=== PATIENT | male | born 1940 | race Caucasian/White ===

== ENCOUNTER 2017-01-28 16:41 | Inpatient (IN) | payer MEDICARE, MEDICAID ==
[~2017-01-28] VITALS: Ht 180.3 cm; Wt 56.8 kg
[2017-01-28 16:46] VITALS: BP 190/99; PULSE 118; RESP 24; TEMP 97.8; O2SAT 96
[2017-01-28 17:05] VITALS: BP 123/70; PULSE 113; RESP 16; TEMP 98.8; O2SAT 96
[2017-01-28] MEDS ORDERED: SODIUM CHLOR 0.9% 1000 ML INJ 1,000 ML IV SCH (18:38)
--- NOTE | 2017-01-28 18:44 | PD ---
HPI Chief Complaint: Fall Time Seen by Provider: 18:41 Travel History International Travel<30 days: No Contact w/Intl Traveler<30days: No Traveled to known affect area: No History of Present Illness HPI 76-year-old male with a history of hypertension and is brought to the emergency department by EMS for evaluation of fall that occurred 3 days ago. The patient lives in [place] [facility] [place] community alone, he uses a power chair for getting around, he does not ambulate. He states that he was transferring from his wheelchair to the toilet on Thursday evening when he lost his balance and fell to the left side. States that he fell onto his left side on his buttocks however thinks that he hit his right leg on something. States that he was unable to get up after this fall and laid on the ground until the morning. States that he does not think he hit his head or lost consciousness. States that the communication manager came to check on him in the morning and called the fire department who evaluated the patient. At the time the patient states that he did not want come to the hospital and so they put him in his bed on Thursday and he has been in his bed since Thursday. States that he called EMS today because he 's been unable to move out of his bed due to pain in his right upper leg. He has not had anything to eat or drink over the last several days. He denies any fever, chills, nausea, vomiting, chest pain, shortness of breath, abdominal pain , lightheadedness, dizziness, numbness or tingling, weakness. The patient has a deformity in the right leg and right arm that he states has been present since . Denies anticoagulation. PCP Dr. Martinez. No other complaints. [facility] Past Medical History Hypertension: Yes Social History Alcohol Use: No Tobacco Use: No Substance Use: No Allergies-Medications (Allergen,Severity, Reaction): Coded Allergies: Penicillin (Verified Allergy, Unknown, 01/28/17) Reported Meds & Prescriptions Reported Meds & Active Scripts Active Active Prescriptions or Reported Medications Unobtainable Review of Systems Except as stated in HPI: all other systems reviewed are Neg Physical Exam Narrative GENERAL: Well-nourished and well-developed pleasant patient in no acute distress who is nontoxic appearing. SKIN: Warm and dry. HEAD: Normocephalic and atraumatic. EYES: No injection, drainage, or hyphema noted. PERRLA. EOMI. ENT: No nasal drainage noted. Oropharynx is clear. NECK: Supple and the trachea is midline. No obvious deformities, midline tenderness to palpation. CARDIOVASCULAR: Regular rate and rhythm. RESPIRATORY: Breath sounds are equal bilaterally with no accessory muscle use, wheezing, rhonchi, or crackles. GASTROINTESTINAL: Abdomen is soft, non-tender, and nondistended. MUSCULOSKELETAL: Deformity noted to the right upper extremity and right leg, per patient this is chronic. Patient does have tenderness to palpation of right upper thigh, pain in the right thigh is elicited with movement. No cyanosis or ecchymosis is present throughout the upper and lower extremities. DP pulses are 2+ bilaterally. BACK: Nontender without any obvious deformities, bony point tenderness, or crepitus noted throughout the thoracic and lumbar vertebrae. NEUROLOGICAL: Awake, alert, and oriented. Normal speech and gait. Cranial nerves are grossly intact. Data Data Last Documented VS Vital Signs Date Time Temp Pulse Resp B/P Pulse Ox O2 Delivery O2 Flow Rate FiO2 01/28/17 20:17 106 18 125/58 100 Room Air 01/28/17 17:05 98.8 Orders Complete Blood Count With Diff (01/28/17 18:38) Comprehensive Metabolic Panel (01/28/17 18:38) Lactic Acid (01/28/17 18:38) Prothrombin Time / Inr (Pt) (01/28/17 18:38) Act Partial Throm Time (Ptt) (01/28/17 18:38) Urinalysis - C+S If Indicated (01/28/17 18:38) Iv Access Insert/Monitor (01/28/17 18:38) Ecg Monitoring (01/28/17 18:38) Oximetry (01/28/17 18:38) Sodium Chlor 0.9% 1000 Ml Inj (Ns 1000 M (01/28/17 18:38) Sodium Chloride 0.9% Flush (Ns Flush) (01/28/17 18:45) Electrocardiogram (01/28/17 18:38) Creatine Kinase (Cpk) (01/28/17 18:38) Femur (Ap & Lat/2vws) (01/28/17 18:38) Pelvis, Ap Only (Routine) (01/28/17 18:38) Ct Brain W/O Iv Contrast(Rout) (01/28/17 18:44) Urine Culture (01/28/17 17:50) Labs Laboratory Tests Test 01/28/17 17:50 White Blood Count 5.1 TH/MM3 Red Blood Count 2.90 MIL/MM3 Hemoglobin 9.2 GM/DL Hematocrit 27.8 % Mean Corpuscular Volume 96.1 FL Mean Corpuscular Hemoglobin 31.6 PG Mean Corpuscular Hemoglobin 32.9 % Concent Red Cell Distribution Width 16.5 % Platelet Count 56 TH/MM3 Mean Platelet Volume 8.2 FL Neutrophils (%) (Auto) 85.9 % Lymphocytes (%) (Auto) 7.7 % Monocytes (%) (Auto) 6.0 % Eosinophils (%) (Auto) 0.1 % Basophils (%) (Auto) 0.3 % Neutrophils # (Auto) 4.4 TH/MM3 Lymphocytes # (Auto) 0.4 TH/MM3 Monocytes # (Auto) 0.3 TH/MM3 Eosinophils # (Auto) 0.0 TH/MM3 Basophils # (Auto) 0.0 TH/MM3 CBC Comment AUTO DIFF Differential Comment AUTO DIFF CONFIRMED Platelet Estimate LOW Platelet Morphology Comment NORMAL Prothrombin Time 11.6 SEC Prothromb Time International 1.0 RATIO Ratio Activated Partial 22.0 SEC Thromboplast Time Urine Color YELLOW Urine Turbidity HAZY Urine pH 5.5 Urine Specific [place] 1.019 Urine Protein 30 mg/dL Urine Glucose (UA) NEG mg/dL Urine Ketones 40 mg/dL Urine Occult Blood SMALL Urine Nitrite NEG Urine Bilirubin NEG Urine Urobilinogen 2.0 MG/DL Urine Leukocyte Esterase NEG Urine RBC 9 /hpf Urine WBC 10 /hpf Urine Squamous Epithelial 1 /hpf Cells Urine Mucus MANY /lpf Urine Sperm RARE Microscopic Urinalysis Comment CULTURE INDICATED Sodium Level 141 MEQ/L Potassium Level 4.0 MEQ/L Chloride Level 109 MEQ/L Carbon Dioxide Level 24.2 MEQ/L Anion Gap 8 MEQ/L Blood Urea Nitrogen 41 MG/DL Creatinine 0.83 MG/DL Estimat Glomerular Filtration 90 ML/MIN Rate Random Glucose 84 MG/DL Calcium Level 8.3 MG/DL Total Bilirubin 1.6 MG/DL Aspartate Amino Transf 13 U/L (AST/SGOT) Alanine Aminotransferase 12 U/L (ALT/SGPT) Alkaline Phosphatase 97 U/L Total Creatine Kinase 62 U/L Total Protein 5.8 GM/DL Albumin 2.6 GM/DL [facility] Decision Making Medical Screen Exam Complete: Yes Emergency Medical Condition: Yes Differential Diagnosis Fracture versus contusion versus rhabdomyolysis versus dehydration versus a joint abnormality versus UTI Narrative Course 76-year-old male is brought to the emergency department by EMS for evaluation of fall that occurred on Thursday with inability to ambulate or get out of bed over the last 3 days. Patient is afebrile. His blood pressure is noted to be elevated, admits he has not taken his medication in 2 days. He is tachycardic with a heart of 113 beats per minute. He has chronic deformities to the right upper and right lower extremities. He does have pain in the right upper femur. X-ray imaging of the right femur and pelvis has been ordered and is pending. Head CT has been ordered and is pending. Patient is administered IV fluids. Initial laboratory and imaging studies have been ordered and the patient will be evaluated by another provider when a medical bed becomes available. The triage nurse is aware of the plan. The proposed plan of evaluation and treatment was discussed with the patient who verbalizes an understanding and agrees to proceed. Scripts Unable to Obtain Active Prescriptions or Reported Meds Liza Ramirez January 28, 2017 18:44
[2017-01-28] MEDS ORDERED: SODIUM CHLORIDE 0.9% FLUSH 10 ML FLUSH IV FLUSH PRN ×2 (18:45→20:45)
[2017-01-28 19:18] LABS: BLOOD, URINE SMALL (NEG); GLUCOSE,URINE NEG (NEG); KETONE, URINE 40 mg/dL (NEG); MUCUS URINE MANY /lpf (OCC); NITRITE,URINE NEG (NEG); PH, URINE 5.5 (5.0-8.5); SQUAMOUS EPITHELIAL CELL URINE 1 /hpf (0-5); URINE COLOR YELLOW (YELLW/STRAW)
[2017-01-28 19:19] LABS: COMMENT (UR) CULTURE INDICATED; CULTURE IF INDICATED CULTURE INDICATED
--- NOTE | 2017-01-28 19:19 | RADRPT ---
EXAM DATE/TIME: 01/28/2017 18:49 [facility] COMPARISON: FEMUR RIGHT (AP & LAT/2VWS), January 28, 2017, 18:50. INDICATIONS : Right pelvis pain after fall. MEDICAL HISTORY : Right sided injury, bone deformities. SURGICAL HISTORY : None. ENCOUNTER: Initial ACUITY: 3 days PAIN SCORE: 10/10 LOCATION: Right pelvis. FINDINGS: A single frontal view the pelvis is obliqued. There is cortical irregularity involving the femoral ne ck on the right suggestive of a subcapital femoral neck fracture. Left hip and pelvis intact. Degener ative changes at the SI joints. A calcified and tortuous aorta. CONCLUSION: Limited study due to the obliquity. Suspected acute subcapital femoral neck fracture on the right. Artemio Cline Jr., MD on January 28, 2017 at 19:14 Board Certified Radiologist. This report was verified electronically.
[2017-01-28 19:21] LABS: AUTOMATED NEUTROPHIL # 4.4 TH/MM3 (1.8-7.7); BASOPHIL % 0.3 % (0.0-2.0); EOSINOPHIL % 0.1 % (0.0-4.0); HEMATOCRIT 27.8 % (39.0-51.0); LYMPH % 7.7 % (9.0-44.0); LYMPHOCYTE # 0.4 TH/MM3 (1.0-4.8); MEAN CELL VOLUME 96.1 FL (80.0-100.0); MEAN CORPUSCULAR HEMOGLOBIN 31.6 PG (27.0-34.0); MEAN CORPUSCULAR HGB CONC 32.9 % (32.0-36.0); NEUT % 85.9 % (16.0-70.0); PLATELET COUNT 56 TH/MM3 (150-450); RED CELL DISTRIBUTION WIDTH 16.5 % (11.6-17.2); WHITE BLOOD COUNT 5.1 TH/MM3 (4.0-11.0)
--- NOTE | 2017-01-28 19:22 | RADRPT ---
EXAM DATE/TIME: 01/28/2017 18:50 [facility] COMPARISON: PELVIS AP ONLY, January 28, 2017, 18:49. INDICATIONS : Right femur pain after fall. MEDICAL HISTORY : Right sided injury, bone deformities. SURGICAL HISTORY : None. ENCOUNTER: Initial ACUITY: 3 days PAIN SCORE: 10/10 LOCATION: Right proximal femur. FINDINGS: 4 images the right femur reveal cortical irregularity involving the subcapital femoral neck. This lik cipriano relates to an acute subcapital femoral neck fracture. Diffuse osteopenia seen. Also arthritis inv olving the hip joint and knee joint. Atherosclerotic changes involving the SFA. CONCLUSION: Suspected acute subcapital femoral neck fracture on the right. Artemio Cline Jr., MD on January 28, 2017 at 19:17 Board Certified Radiologist. This report was verified electronically.
[2017-01-28 19:23] LABS: HEMO FLAGS AUTO DIFF
[2017-01-28 19:29] LABS: PROTHROMBIN TIME - PATIENT 11.6 SEC (9.8-11.6)
[2017-01-28 19:41] LABS: ANION GAP 8 MEQ/L (5-15); AST (GOT) 13 U/L (15-37); BICARBONATE 24.2 MEQ/L (21.0-32.0); BLOOD UREA NITROGEN 41 MG/DL (7-18); CHLORIDE 109 MEQ/L (98-107); GLOMERULAR FILTRATION RATE 90 ML/MIN (>89); SODIUM (NA) 141 MEQ/L (136-145)
[2017-01-28 19:42] LABS: ALT (GPT) 12 U/L (12-78)
[2017-01-28 19:44] LABS: ALKALINE PHOSPHATASE 97 U/L (45-117); TOTAL BILIRUBIN ADULT 1.6 MG/DL (0.2-1.0)
[2017-01-28 19:45] LABS: CREATINE KINASE 62 U/L (39-308)
--- NOTE | 2017-01-28 19:47 | RADRPT ---
EXAM DATE/TIME: 01/28/2017 19:08 [facility] COMPARISON: No previous studies available for comparison. INDICATIONS : Trauma. Fall. RADIATION DOSE: 41.56 CTDIvol (mGy) MEDICAL HISTORY : Hypertension. SURGICAL HISTORY : None. ENCOUNTER: Initial ACUITY: 1 day PAIN SCALE: Non-responsive LOCATION: cranial TECHNIQUE: Multiple contiguous axial images were obtained of the head. Using automated exposure control and adj ustment of the mA and/or kV according to patient size, radiation dose was kept as low as reasonably a chievable to obtain optimal diagnostic quality images. FINDINGS: CEREBRUM: Small chronic bilateral basal ganglia lacunar infarctions. The ventricles are normal for age. No margarita dence of midline shift, mass lesion, hemorrhage or acute infarction. No extra-axial fluid collection s are seen. POSTERIOR FOSSA: The cerebellum and brainstem are intact. The 4th ventricle is midline. The cerebellopontine angle i s unremarkable. EXTRACRANIAL: The visualized portion of the orbits is intact. SKULL: The calvaria is intact. No evidence of skull fracture. CONCLUSION: No acute disease. Artemio Cline Jr., MD on January 28, 2017 at 19:44 Board Certified Radiologist. This report was verified electronically.
[2017-01-28 19:56] LABS: PLATELET ESTIMATE SMEAR LOW (NORMAL); PLATELET MORPHOLOGY NORMAL (NORMAL); SCAN/DIFF AUTO DIFF CONFIRMED
[2017-01-28 20:16] VITALS: RESP 18; O2SAT 100
[2017-01-28 20:17] VITALS: BP 125/58; PULSE 106; RESP 18; O2SAT 100
--- NOTE | 2017-01-28 20:23 | PD ---
Physical Exam Date Seen by Provider: January 28, 2017 Time Seen by Provider: 20:23 Narrative 76-year-old male presents to the emergency department after a fall that occurred on Thursday, 3 days ago. Patient was originally seen by DARRION Perez the ambulance [facility]. Please see previous note for further details. Data Data Last Documented VS Vital Signs Date Time Temp Pulse Resp B/P Pulse Ox O2 Delivery O2 Flow Rate FiO2 01/28/17 20:17 106 18 125/58 100 Room Air 01/28/17 17:05 98.8 Orders Complete Blood Count With Diff (01/28/17 18:38) Comprehensive Metabolic Panel (01/28/17 18:38) Lactic Acid (01/28/17 18:38) Prothrombin Time / Inr (Pt) (01/28/17 18:38) Act Partial Throm Time (Ptt) (01/28/17 18:38) Urinalysis - C+S If Indicated (01/28/17 18:38) Iv Access Insert/Monitor (01/28/17 18:38) Ecg Monitoring (01/28/17 18:38) Oximetry (01/28/17 18:38) Sodium Chlor 0.9% 1000 Ml Inj (Ns 1000 M (01/28/17 18:38) Sodium Chloride 0.9% Flush (Ns Flush) (01/28/17 18:45) Electrocardiogram (01/28/17 18:38) Creatine Kinase (Cpk) (01/28/17 18:38) Femur (Ap & Lat/2vws) (01/28/17 18:38) Pelvis, Ap Only (Routine) (01/28/17 18:38) Ct Brain W/O Iv Contrast(Rout) (01/28/17 18:44) Urine Culture (01/28/17 17:50) Admit Order (Ed Use Only) (01/28/17 20:37) Labs Laboratory Tests Test 01/28/17 17:50 White Blood Count 5.1 TH/MM3 Red Blood Count 2.90 MIL/MM3 Hemoglobin 9.2 GM/DL Hematocrit 27.8 % Mean Corpuscular Volume 96.1 FL Mean Corpuscular Hemoglobin 31.6 PG Mean Corpuscular Hemoglobin 32.9 % Concent Red Cell Distribution Width 16.5 % Platelet Count 56 TH/MM3 Mean Platelet Volume 8.2 FL Neutrophils (%) (Auto) 85.9 % Lymphocytes (%) (Auto) 7.7 % Monocytes (%) (Auto) 6.0 % Eosinophils (%) (Auto) 0.1 % Basophils (%) (Auto) 0.3 % Neutrophils # (Auto) 4.4 TH/MM3 Lymphocytes # (Auto) 0.4 TH/MM3 Monocytes # (Auto) 0.3 TH/MM3 Eosinophils # (Auto) 0.0 TH/MM3 Basophils # (Auto) 0.0 TH/MM3 CBC Comment AUTO DIFF Differential Comment AUTO DIFF CONFIRMED Platelet Estimate LOW Platelet Morphology Comment NORMAL Prothrombin Time 11.6 SEC Prothromb Time International 1.0 RATIO Ratio Activated Partial 22.0 SEC Thromboplast Time Urine Color YELLOW Urine Turbidity HAZY Urine pH 5.5 Urine Specific [place] 1.019 Urine Protein 30 mg/dL Urine Glucose (UA) NEG mg/dL Urine Ketones 40 mg/dL Urine Occult Blood SMALL Urine Nitrite NEG Urine Bilirubin NEG Urine Urobilinogen 2.0 MG/DL Urine Leukocyte Esterase NEG Urine RBC 9 /hpf Urine WBC 10 /hpf Urine Squamous Epithelial 1 /hpf Cells Urine Mucus MANY /lpf Urine Sperm RARE Microscopic Urinalysis Comment CULTURE INDICATED Sodium Level 141 MEQ/L Potassium Level 4.0 MEQ/L Chloride Level 109 MEQ/L Carbon Dioxide Level 24.2 MEQ/L Anion Gap 8 MEQ/L Blood Urea Nitrogen 41 MG/DL Creatinine 0.83 MG/DL Estimat Glomerular Filtration 90 ML/MIN Rate Random Glucose 84 MG/DL Calcium Level 8.3 MG/DL Total Bilirubin 1.6 MG/DL Aspartate Amino Transf 13 U/L (AST/SGOT) Alanine Aminotransferase 12 U/L (ALT/SGPT) Alkaline Phosphatase 97 U/L Total Creatine Kinase 62 U/L Total Protein 5.8 GM/DL Albumin 2.6 GM/DL [facility] Medical Record Reviewed: Yes Supervised Visit with SELINA: No Interpretation(s) CT brain - CONCLUSION: No acute disease. x-ray right femur- CONCLUSION: CONCLUSION: Suspected acute subcapital femoral neck fracture on the right. x-ray pelvis - CONCLUSION: Limited study due to the obliquity. Suspected acute subcapital femoral neck fracture on the right. Differential Diagnosis Closed head injury versus intracranial abnormality versus fracture versus contusion versus electrolyte abnormality Narrative Course 76-year-old male presents to the emergency department for evaluation after fall that occurred 3 days ago. He has been unable to walk since. CBC shows hemoglobin 9.2, hematocrit 27.8. EKG shows sinus tachycardia, heart rate 110, no acute ST changes. CMP shows elevated bilirubin 1.6, no acute abnormality. BUN is 41. Coags show no acute abnormality. Urinalysis shows 10 WBC, many mucus. CT of the brain shows no acute disease. X-ray right femur shows a suspected acute subcapital femoral neck fracture on the right. X-ray of the pelvis shows a suspected acute subcapital femoral neck fracture on the right. Dr. Ortega accepted admission. Dr. Corona would like CT of the hip to be completed and him to be called back. CT of the right hip shows acute subcapital femoral neck fracture. Dr. Corona is paged. Dr. Corona would like patient to be NPO after midnight. Diagnosis Primary Impression: Femoral neck fracture Qualified Code: S72.001A - Closed fracture of neck of right femur, initial encounter Admitting Information Admitting Physician Requests: Admit Scripts Unable to Obtain Active Prescriptions or Reported Meds Lauryn Hollingsworth January 28, 2017 20:23
[2017-01-28] MEDS ORDERED: ONDANSETRON HCL 4 MG/2 ML VIAL IVP PRN (20:45)
[2017-01-28] MEDS ORDERED: NALOXONE HCL 0.4 MG/ML AMP IV PRN (20:45)
[2017-01-28] MEDS: SODIUM CHLORIDE 0.9% FLUSH 10 ML FLUSH IV FLUSH SCH (21:23)
--- NOTE | 2017-01-28 21:48 | RADRPT ---
EXAM DATE/TIME: 01/28/2017 21:17 [facility] COMPARISON: FEMUR RIGHT (AP & LAT/2VWS), January 28, 2017, 18:50. INDICATIONS : Evalaute for subcapital femoral neck fracture. RADIATION DOSE: 10.02 CTDIvol (mGy) MEDICAL HISTORY : None SURGICAL HISTORY : None. ENCOUNTER: Initial ACUITY: 1 day PAIN SCALE: 9/10 LOCATION: Right hip. TECHNIQUE: Volumetric scanning of the hip was performed. Using automated exposure control and adjustment of the mA and/or kV according to patient size, radiation dose was kept as low as reasonably achievable to o btain optimal diagnostic quality images. FINDINGS: N. acute subcapital femoral neck fracture is observed. No extension to the articular surface of the f emoral head. No significant angulation or distraction. The femoral head remains in contact with the a cetabulum. No hematoma seen. No joint effusion. Visualized bowel structures are unremarkable. Calcifi ed plaque throughout the aorta and inflow vessels. CONCLUSION: Acute subcapital femoral neck fracture as detailed above. Artemio Cline Jr., MD on January 28, 2017 at 21:40 Board Certified Radiologist. This report was verified electronically.
[2017-01-28 23:40] VITALS: PULSE 107
[2017-01-28 23:45] VITALS: BP 116/59; PULSE 108; RESP 18; TEMP 96.8; O2SAT 99
--- NOTE | 2017-01-29 03:54 | HHI.HP ---
HPI Service [facility] Primary Care Physician Star Martinez MD Admission Diagnosis right subcapital femoral neck fracture Diagnoses: Travel History International Travel<30 Days: No Contact w/Intl Traveler <30 Da: No Traveled to Known Affected Are: No History of Present Illness fell at night going on wheel chair to bathroom tripped on my feet did not hit head did not pass out layed there till following [facility] came for smeone else and found him refused hospital transport then then ambulance came again last night beaccuse someone called he hasnt eaten in past 2 days prior to that, was able to transfer to [facility] once or twice has injury, was fine till later in life wheel chair bound at baseline felt dizziness all my life otherwise no other symptoms no urinary problems/ no blood in stool or urine/ no chest pain/ no shortness of breath/ palpitations/ syncope no nausea/ vomiting/ diarrhea/ abdominal pain Review of Systems Except as stated in HPI: all other systems reviewed are Neg Past Family Social History Past Medical History Hypertension Rheumatoid arthritis 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 Resides at a nursing home community Physical Exam Vital Signs Vital Signs Date Time Temp Pulse Resp B/P Pulse Ox O2 Delivery O2 Flow Rate FiO2 01/28/17 23:45 96.8 108 18 116/59 99 01/28/17 23:40 107 01/28/17 20:17 106 18 125/58 100 Room Air 01/28/17 20:16 18 100 Room Air 01/28/17 17:05 98.8 113 16 123/70 96 01/28/17 16:46 97.8 118 24 190/99 96 Room Air Physical Exam GENERAL: This is a thin elderly gentleman, looks chronically ill, not in acute distress. SKIN: No rashes, ecchymoses or lesions. Cool and dry. HEAD: Atraumatic. Normocephalic. No temporal or scalp tenderness. EYES: No scleral icterus. No injection or drainage. ENT: Nose without bleeding, purulent drainage or septal hematoma.Airway patent. NECK: Trachea midline. No JVD CARDIOVASCULAR: Regular rate and rhythm without murmurs, gallops, or rubs. RESPIRATORY: Clear to auscultation. Decreased air entry bilaterally. Poor inspiratory effort GASTROINTESTINAL: Abdomen soft, non-tender, nondistended. No guarding. : Large right inguinal hernia at the scrotal sac. No evidence of strangulation MUSCULOSKELETAL: Right upper extremity contracted with internal rotation. Reports secondary to injury. No calf asymmetry. NEUROLOGICAL: Awake and alert. Normal speech. Right-sided weakness from injury Laboratory Laboratory Tests Test 01/28/17 17:50 White Blood Count 5.1 Red Blood Count 2.90 Hemoglobin 9.2 Hematocrit 27.8 Mean Corpuscular Volume 96.1 Mean Corpuscular Hemoglobin 31.6 Mean Corpuscular Hemoglobin 32.9 Concent Red Cell Distribution Width 16.5 Platelet Count 56 Mean Platelet Volume 8.2 Neutrophils (%) (Auto) 85.9 Lymphocytes (%) (Auto) 7.7 Monocytes (%) (Auto) 6.0 Eosinophils (%) (Auto) 0.1 Basophils (%) (Auto) 0.3 Neutrophils # (Auto) 4.4 Lymphocytes # (Auto) 0.4 Monocytes # (Auto) 0.3 Eosinophils # (Auto) 0.0 Basophils # (Auto) 0.0 CBC Comment AUTO DIFF Differential Comment AUTO DIFF CONFIRMED Platelet Estimate LOW Platelet Morphology Comment NORMAL Prothrombin Time 11.6 Prothromb Time International 1.0 Ratio Activated Partial 22.0 Thromboplast Time Urine Color YELLOW Urine Turbidity HAZY Urine pH 5.5 Urine Specific [place] 1.019 Urine Protein 30 Urine Glucose (UA) NEG Urine Ketones 40 Urine Occult Blood SMALL Urine Nitrite NEG Urine Bilirubin NEG Urine Urobilinogen 2.0 Urine Leukocyte Esterase NEG Urine RBC 9 Urine WBC 10 Urine Squamous Epithelial 1 Cells Urine Mucus MANY Urine Sperm RARE Microscopic Urinalysis Comment CULTURE INDICATED Sodium Level 141 Potassium Level 4.0 Chloride Level 109 Carbon Dioxide Level 24.2 Anion Gap 8 Blood Urea Nitrogen 41 Creatinine 0.83 Estimat Glomerular Filtration 90 Rate Random Glucose 84 Calcium Level 8.3 Total Bilirubin 1.6 Aspartate Amino Transf 13 (AST/SGOT) Alanine Aminotransferase 12 (ALT/SGPT) Alkaline Phosphatase 97 Total Creatine Kinase 62 Total Protein 5.8 Albumin 2.6 Date/Time Procedure Status Source Growth 01/28/17 17:50 Urine Culture Worksheet Urine Clean Catch Pending Result Diagram: 01/28/17174901/28/171749 Imaging Last [address] 01/28/171843 Signed Impressions: Service Date/Time: Saturday, January 28, 2017 19:08 - CONCLUSION: No acute disease. Artemio Cline Jr., MD Pelvis X-Ray 01/28/171837 Signed Impressions: Service Date/Time: Saturday, January 28, 2017 18:49 - CONCLUSION: Limited study due to the obliquity. Suspected acute subcapital femoral neck fracture on the right. Artemio Cline Jr., MD Femur X-Ray 01/28/171837 Signed Impressions: Service Date/Time: Saturday, January 28, 2017 18:50 - CONCLUSION: Suspected acute subcapital femoral neck fracture on the right. Artemio Cline Jr., MD Lower Extremity CT 01/28/17 0000 Signed Impressions: Service Date/Time: Saturday, January 28, 2017 21:17 - CONCLUSION: Acute subcapital femoral neck fracture as detailed above. 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 Nothing by mouth. Pain control. Would consult patient's oncologist as patient has significant thrombocytopenia and will be going to the OR. Would also consult general surgery to see whether patient could have inguinal hernia repair this time since it is quite large, really compromising his quality of life, and since he would be going and her anesthesia for hip surgery. Start patient on Cipro 400 mg IV every 12 hours for UTI. Obtain patient's med reconciliation. DVT prophylaxisSCDs. Due to thrombocytopenia Discussed Condition With Patient, ER physician, patient's nurse Physician Certification 2 Midnight Certification Type: Admission for Inpatient Services Order for Inpatient Services The services are ordered in accordance with Medicare regulations or non- Medicare payer requirements, as applicable. In the case of services not specified as inpatient-only, they are appropriately provided as inpatient services in accordance with the 2-midnight benchmark. Estimated LOS (days): 3 days is the estimated time the patient will need to remain in the hospital, assuming treatment plan goals are met and no additional complications. Post-Hospital Plan: Not yet determined David Ortega MD Jan 29, 2017 03:54
[2017-01-29 04:00] VITALS: BP 113/55; PULSE 104; RESP 18; TEMP 96.8; O2SAT 99
[2017-01-29] MEDS: CIPROFLOXACIN 400 MG PREMIX 200 ML IV SCH ×2 (06:05→16:15)
[2017-01-29 07:28] LABS: AUTOMATED NEUTROPHIL # 2.2 TH/MM3 (1.8-7.7); BASOPHIL % 0.5 % (0.0-2.0); EOSINOPHIL % 0.6 % (0.0-4.0); LYMPH % 18.1 % (9.0-44.0); LYMPHOCYTE # 0.5 TH/MM3 (1.0-4.8); MEAN CELL VOLUME 97.7 FL (80.0-100.0); MEAN CORPUSCULAR HEMOGLOBIN 30.6 PG (27.0-34.0); MEAN CORPUSCULAR HGB CONC 31.4 % (32.0-36.0); MONO % 8.3 % (0.0-8.0); NEUT % 72.5 % (16.0-70.0); PLATELET COUNT 61 TH/MM3 (150-450); RED BLOOD COUNT 2.46 MIL/MM3 (4.50-5.90); RED CELL DISTRIBUTION WIDTH 16.5 % (11.6-17.2)
--- NOTE | 2017-01-29 07:32 | EKG ---
Date Performed: 01/28/2017 Time Performed: 20:05:55 PTAGE: 76 years EKG: SINUS TACHYCARDIA ST DEVIATION AND MODERATE T-WAVE ABNORMALITY, CONSIDER INFERIOR ISCHEMIA ABNORMAL ECG NO PREVIOUS TRACING DOCTOR: Hang Wells Interpretating Date/Time 01/29/2017 07:31:28
[2017-01-29 07:41] LABS: HEMO FLAGS AUTO DIFF
[2017-01-29 07:50] VITALS: BP 116/58; PULSE 101; RESP 20; TEMP 97.2; O2SAT 100
--- NOTE | 2017-01-29 07:53 | PD.ORT.PN ---
Subjective Subjective Remarks s/p fall at home. history of right sided weakness and contractures. does not ambulate with right side. Objective Vitals Vital Signs Date Time Temp Pulse Resp B/P Pulse Ox O2 Delivery O2 Flow Rate FiO2 01/29/17 04:00 96.8 104 18 113/55 99 01/28/17 23:45 96.8 108 18 116/59 99 01/28/17 23:40 107 01/28/17 20:17 106 18 125/58 100 Room Air 01/28/17 20:16 18 100 Room Air 01/28/17 17:05 98.8 113 16 123/70 96 01/28/17 16:46 97.8 118 24 190/99 96 Room Air I/O 01/28/17 01/28/17 01/28/17 01/29/17 01/29/17 01/29/17 07:00 15:00 23:00 07:00 15:00 23:00 Output Total 225 ml Balance -225 ml Output Urine Total 225 ml Result Diagram: 01/29/17 0654 01/28/17 1750 Other Results Laboratory Tests Test 01/28/17 17:50 Prothrombin Time 11.6 SEC (9.8-11.6) Prothromb Time International 1.0 RATIO Ratio Imaging Last [address] 01/28/17 1844 Signed Impressions: Service Date/Time: Saturday, January 28, 2017 19:08 - CONCLUSION: No acute disease. Artemio Cline Jr., MD Pelvis X-Ray 01/28/171837 Signed Impressions: Service Date/Time: Saturday, January 28, 2017 18:49 - CONCLUSION: Limited study due to the obliquity. Suspected acute subcapital femoral neck fracture on the right. Artemio Cline Jr., MD Femur X-Ray 01/28/171837 Signed Impressions: Service Date/Time: Saturday, January 28, 2017 18:50 - CONCLUSION: Suspected acute subcapital femoral neck fracture on the right. Artemio Cline Jr., MD Objective Remarks RLE: +contracture of right knee and hip. +sensation distally. +dorsiflexion. pain with adduction or internal rotation of hip. Assessment & Plan Assessment and Plan 1) Right femoral neck fx -resume diet -sign consents -npo after midnight -plan for surgery tomorrow Abel Bonner Jan 29, 2017 07:53
[2017-01-29 07:55] LABS: BICARBONATE 22.7 MEQ/L (21.0-32.0); POTASSIUM 3.6 MEQ/L (3.5-5.1)
[2017-01-29] MEDS: SODIUM CHLORIDE 0.9% FLUSH 10 ML FLUSH IV FLUSH SCH ×2 (08:35→20:11)
[2017-01-29 08:54] LABS: PLATELET ESTIMATE SMEAR LOW (NORMAL); PLATELET MORPHOLOGY NORMAL (NORMAL); SCAN/DIFF AUTO DIFF CONFIRMED
--- NOTE | 2017-01-29 11:09 | PD.CONS ---
cc: Jd Mckeon MD [facility] Service General Surgery Consult Requested By Dr. Ortega Reason for Consult Evaluation RIGHT inguinal hernia Primary Care Physician Star Martinez MD History of Present Illness This is a 76 year old male , rheumatoid arthritis, cerebral palsy, large T-cell leukemia, Myelodysplastic Syndrome, pancytopenia, and RIGHT inguinal hernia. He presents to the ED after falling in his bathroom. Orthopedics has been consulted for a RIGHT femoral head fracture. Dr. Del Rio is planning to take patient to the OR for repair tomorrow. The patient states that he has had the RIGHT inguinal hernia for many years. He reports he is able to tolerate a regular diet but does suffer from chronic constipation. A General Surgery evaluation has been requested for evaluation of RIGHT inguinal hernia. Review of Systems Constitutional: DENIES: Fatigue, Fever, Weight gain, Chills Endocrine: DENIES: Polydipsia, Polyuria, Polyphagia Eyes: DENIES: Diplopia, Eye inflammation Ears, nose, mouth, throat: DENIES: Vertigo, Nasal discharge Respiratory: DENIES: Wheezing, Hemoptysis Cardiovascular: DENIES: Chest pain, Syncope Gastrointestinal: DENIES: Abdominal pain Genitourinary: DENIES: Urgency, Dysuria, Nocturia Musculoskeletal: DENIES: Joint pain Integumentary: DENIES: Abnormal pigmentation Hematologic/lymphatic: DENIES: Bruising Immunologic/allergic: DENIES: Eczema Neurologic: DENIES: Abnormal gait, Localized weakness Psychiatric: DENIES: Mood changes, Depression, Hallucinations Past Family Social History Past Medical History Hypertension Rheumatoid arthritis Cerebral palsypatient reports this is in fact defect injury 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 Large T-cell leukemia Myelodysplastic Syndrome Pancytopenia Asthma Right large inguinal hernia Past Surgical History Multiple right lower extremity surgeries for congenital deformity Cataract surgery Reported Medications See chart; of note he denies the use of anticoagulation Allergies: Coded Allergies: Penicillin (Verified Allergy, Unknown, 01/28/17) Active Ordered Medications Current Medications Medications (Trade) Dose Ordered Sig/Hortencia Route Start Time Stop Time Status Last Admin (NS Flush) 2 ml UNSCH PRN IV FLUSH 01/28/17 20:45 (NS Flush) 2 ml BID IV FLUSH 01/28/17 21:00 01/28/17 21:23 (Zofran Inj) 4 mg Q6H PRN IVP 01/28/17 20:45 Naloxone HCl 0.4 mg 0.4 mg UNSCH PRN IV 01/28/17 20:45 (Cipro 400 Mg Premix) 200 ml @ 200 mls/hr Q12H IV 01/29/17 05:00 01/29/17 06:05 Family History Noncontributory Social History Tobacco--- smoked in the past; quit many years ago ETOH- occasionally Denies illicit drug use Physical Exam Vital Signs Vital Signs Date Time Temp Pulse Resp B/P Pulse Ox O2 Delivery O2 Flow Rate FiO2 01/29/17 07:50 97.2 101 20 116/58 100 01/29/17 04:00 96.8 104 18 113/55 99 01/28/17 23:45 96.8 108 18 116/59 99 01/28/17 23:40 107 01/28/17 20:17 106 18 125/58 100 Room Air 01/28/17 20:16 18 100 Room Air 01/28/17 17:05 98.8 113 16 123/70 96 01/28/17 16:46 97.8 118 24 190/99 96 Room Air Physical Exam GENERAL: Elderly male resting in bed in no acute distress. SKIN: Warm and dry. Several superficial abrasion on BUE. HEAD: Atraumatic. Normocephalic. EYES: Pupils equal and round. No scleral icterus. No injection or drainage. ENT: No nasal bleeding or discharge. Mucous membranes pink and moist. NECK: Trachea midline. No JVD. CARDIOVASCULAR: Regular rate and rhythm. RESPIRATORY: No accessory muscle use. Clear to auscultation. Breath sounds equal bilaterally. GASTROINTESTINAL: Abdomen soft, non-tender, nondistended. Large RIGHT inguinal hernia; reducible; not incarcerated. MUSCULOSKELETAL: RUE contractions. NEUROLOGICAL: Awake and alert. No obvious cranial nerve deficits. Motor grossly within normal limits. Five out of 5 muscle strength in the arms and legs. Normal speech. PSYCHIATRIC: Appropriate mood and affect; insight and judgment normal. Laboratory Laboratory Tests Test 01/28/17 01/29/17 17:50 06:54 White Blood Count 5.1 3.0 Red Blood Count 2.90 2.46 Hemoglobin 9.2 7.5 Hematocrit 27.8 24.0 Mean Corpuscular Volume 96.1 97.7 Mean Corpuscular Hemoglobin 31.6 30.6 Mean Corpuscular Hemoglobin 32.9 31.4 Concent Red Cell Distribution Width 16.5 16.5 Platelet Count 56 61 Mean Platelet Volume 8.2 8.1 Neutrophils (%) (Auto) 85.9 72.5 Lymphocytes (%) (Auto) 7.7 18.1 Monocytes (%) (Auto) 6.0 8.3 Eosinophils (%) (Auto) 0.1 0.6 Basophils (%) (Auto) 0.3 0.5 Neutrophils # (Auto) 4.4 2.2 Lymphocytes # (Auto) 0.4 0.5 Monocytes # (Auto) 0.3 0.2 Eosinophils # (Auto) 0.0 0.0 Basophils # (Auto) 0.0 0.0 CBC Comment AUTO DIFF AUTO DIFF Differential Comment AUTO DIFF AUTO DIFF CONFIRMED CONFIRMED Platelet Estimate LOW LOW Platelet Morphology Comment NORMAL NORMAL Prothrombin Time 11.6 Prothromb Time International 1.0 Ratio Activated Partial 22.0 Thromboplast Time Urine Color YELLOW Urine Turbidity HAZY Urine pH 5.5 Urine Specific [place] 1.019 Urine Protein 30 Urine Glucose (UA) NEG Urine Ketones 40 Urine Occult Blood SMALL Urine Nitrite NEG Urine Bilirubin NEG Urine Urobilinogen 2.0 Urine Leukocyte Esterase NEG Urine RBC 9 Urine WBC 10 Urine Squamous Epithelial 1 Cells Urine Mucus MANY Urine Sperm RARE Microscopic Urinalysis Comment CULTURE INDICATED Sodium Level 141 144 Potassium Level 4.0 3.6 Chloride Level 109 111 Carbon Dioxide Level 24.2 22.7 Anion Gap 8 10 Blood Urea Nitrogen 41 38 Creatinine 0.83 0.61 Estimat Glomerular Filtration 90 129 Rate Random Glucose 84 101 Calcium Level 8.3 8.2 Total Bilirubin 1.6 Aspartate Amino Transf 13 (AST/SGOT) Alanine Aminotransferase 12 (ALT/SGPT) Alkaline Phosphatase 97 Total Creatine Kinase 62 107 Total Protein 5.8 Albumin 2.6 Lactic Acid Level 0.6 Date/Time Procedure Status Source Growth 01/28/17 17:50 Urine Culture Worksheet Urine Clean Catch Pending Result Diagram: 01/29/17 0654 01/29/17 0654 Assessment and Plan Assessment and Plan 76 year old male with extensive past medical history with recent fall at home and RIGHT femoral head fracture going for repair tomorrow; General Surgery consulted to evaluated large RIGHT inguinal hernia. -Patient scheduled for RIGHT hip repair tomorrow with Dr. Del Rio -Patient has no symptoms of strangulation or incarceration -Tolerating regular diet; will need to be NPO for OR tomorrow with orthopedics -Patient should continue with RIGHT hip repair -We would be happy to have see the patient in the office in a few weeks after recovery from hip surgery for elective procedure if a candidate at that time. -Mr. Stuart was provided with the office information and to contact us once recovered from orthopedic surgery Attending Note - Dr. Mckeon Patient seen and examined. Very complex patient with multiple medical problems (see list) and reducible RIH. Moving bowels, not causing him acute problem at present. He is a poor operative candidate; elective hernia repair not indicated. Will see as needed. Will reconsider after completely recovered from hip surgery ; although he is still a poor candidate. The exam, history, and the medical decision-making described in the above note were completed with the assistance of the mid-level provider. I reviewed and agree with the findings presented. I attest that I had a [id number] encounter with the patient on the same day, and personally performed and documented my assessment and findings in the medical record. Discussed Condition With Dr. Mckeon Mr. Stuart Hermila Munoz Jan 29, 2017 11:08 Jd Mckeon MD Jan 29, 2017 20:06
[2017-01-29 11:50] VITALS: BP 110/55; PULSE 101; RESP 20; TEMP 96.4; O2SAT 99
[2017-01-29 15:00] VITALS: BP 128/66; PULSE 95; RESP 20; TEMP 96.6; O2SAT 100
[2017-01-29 20:00] VITALS: PULSE 101; PULSE 95
[2017-01-29] MEDS ORDERED: FUROSEMIDE 20 MG/2 ML VIAL IV PUSH SCH (20:00)
[2017-01-29 20:11] VITALS: BP 112/55; PULSE 101; RESP 16; TEMP 96.5; O2SAT 100
[2017-01-30] VITALS (10 sets, daily range): BP systolic 102–164; BP diastolic 56–70; PULSE 84–108; RESP 16–18; TEMP 96.2–97.1; O2SAT 96–100
[2017-01-30] MEDS: CIPROFLOXACIN 400 MG PREMIX 200 ML IV SCH ×2 (06:15→17:32)
[2017-01-30 08:32] LABS: AUTOMATED NEUTROPHIL # 2.3 TH/MM3 (1.8-7.7); BASOPHIL % 0.7 % (0.0-2.0); EOSINOPHIL % 1.1 % (0.0-4.0); HEMATOCRIT 32.8 % (39.0-51.0); LYMPH % 11.5 % (9.0-44.0); LYMPHOCYTE # 0.4 TH/MM3 (1.0-4.8); MEAN CELL VOLUME 89.6 FL (80.0-100.0); MEAN CORPUSCULAR HEMOGLOBIN 30.9 PG (27.0-34.0); MEAN CORPUSCULAR HGB CONC 34.5 % (32.0-36.0); MONO % 14.9 % (0.0-8.0); NEUT % 71.8 % (16.0-70.0); PLATELET COUNT 89 TH/MM3 (150-450); RED BLOOD COUNT 3.66 MIL/MM3 (4.50-5.90); RED CELL DISTRIBUTION WIDTH 18.5 % (11.6-17.2); WHITE BLOOD COUNT 3.2 TH/MM3 (4.0-11.0)
[2017-01-30 08:40] LABS: HEMO FLAGS AUTO DIFF
[2017-01-30 09:24] LABS: PLATELET ESTIMATE SMEAR LOW (NORMAL); PLATELET MORPHOLOGY NORMAL (NORMAL); SCAN/DIFF AUTO DIFF CONFIRMED
[2017-01-30] MEDS ORDERED: PROPOFOL 200 MG/20 ML AMP IV ONE (09:32)
[2017-01-30] MEDS ORDERED: ePHEDrine/NS 25 MG/5 ML SYR IV ONE (09:33)
[2017-01-30] MEDS ORDERED: ONDANSETRON HCL 4 MG/2 ML VIAL IV PUSH ONE (09:33)
[2017-01-30] MEDS ORDERED: PHENYLEPH/NS 1000 MCG/10 ML SYR IV ONE (09:33)
[2017-01-30] MEDS: SODIUM CHLORIDE 0.9% FLUSH 10 ML FLUSH IV FLUSH SCH (09:42)
[2017-01-30] MEDS ORDERED: POTA10TA2 PO (11:07)
[2017-01-30] MEDS ORDERED: METO25TA3 PO (11:07)
[2017-01-30] MEDS ORDERED: ACETAMINOPHEN 1000 MG/100 ML VIAL IV ONE (11:08)
[2017-01-30] MEDS ORDERED: VANCOMYCIN 500 MG VIAL IRRIGATION ONE (11:41)
[2017-01-30] MEDS ORDERED: BUPIVACAINE/EPINEPHRINE 0.25% 50 ML VIAL INFIL ONE (11:50)
[2017-01-30] MEDS ORDERED: NORC5TAB PO (11:50)
[2017-01-30] MEDS ORDERED: XARE10TA PO (11:52)
[2017-01-30] MEDS ORDERED: GENTAMICIN SULFATE 80 MG/2 ML VIAL IRRIGATION ONE (11:55)
[2017-01-30] MEDS ORDERED: DO NOT ADM ANY ANTICOAGULANT DRUGS PRN (12:15)
[2017-01-30] MEDS ORDERED: SODIUM CHLORIDE 0.9% FLUSH 10 ML FLUSH IV FLUSH PRN (12:15)
[2017-01-30] MEDS ORDERED: ERGOCALCIFEROL (VIT D2) 50,000 UNIT CAP PO ONE (12:15)
[2017-01-30] MEDS ORDERED: MORPHINE SULFATE 4 MG/ML INJ IV PUSH PRN (12:15)
[2017-01-30] MEDS ORDERED: Post-op Orders (for Pharmacy) MISC XX ONE (12:15)
--- NOTE | 2017-01-30 12:16 | PD.OP ---
cc: Sang Lang MD Operative Report Date of Surgery: Jan 30, 2017 Preoperative Diagnosis: Right femoral neck fracture Postoperative Diagnosis: Procedure: Right hip pinning Surgeon: Sang Lang Clinical Rehabilitation Aide(s): ANNIE Crockett PA-C The surgical procedure was assisted by my physician assistant professor. My P.A. presence was necessary throughout this case for the manipulation and positioning of the surgical extremity. My P.A. was assisting me throughout the duration of this procedure. The skill set of a physician assistant professor was medically necessary to complete this procedure. During the surgical case the surgical corsetier was working at the back table and the physician assistant professor was directly assisting me. Operation and Findings: Plan of activity: TTWB Patient was seen and evaluated preoperatively. The patient has significant hip pain from impacted femoral neck fracture. The risk and benefits of surgery were discussed in depth with the patient to include bleeding infection nonunion malunion, avascular necrosis and need for hip replacement painful hardware as well as medical competitions including but not stroke heart attack and . Informed consent was obtained. Operative site was marked. Patient was brought to the operating room and placed on fracture table. IV sedation was administered by anesthesiologist. Timeout procedure was performed. Hip and leg were prepped with alcohol followed by Hibiclens and draped in the usual sterile fashion. IV antibiotics were given prior to incision. Procedure began with evaluation of fracture under fluoroscopy. Leg was gently manipulated to improve alignment. Excellent reduction was achieved. Fluoroscopy was used to confirm reduction. A three cm incision was along the lateral aspect of the proximal femur . Subcutaneous tissue was dissected bluntly. Three guidepins were placed through the lateral cortex of the proximal femur. Guide pins were placed in an inverted triangle position. Guide pins were advanced across the fracture site into the femoral head. Fluoroscopy confirmed appropriate guidepin placement. The screw lengths were measured. A cannulated drill was placed over each of the guide pins. Appropriate length Synthes 7.3 cannulated screws were placed over the guidepins. Good compression was applied across the fracture. Final fluoroscopy revealed well aligned fracture with well-placed hardware. Incision was closed with 3-0 Vicryl and lorelei. Sterile dressings were applied. Patient was awakened and transferred to recovery room. Sang Lang MD Jan 30, 2017 12:16
[2017-01-30] MEDS ORDERED: fentaNYL CITRATE 250 MCG/5 ML AMP ONE (12:26)
--- NOTE | 2017-01-30 12:38 | MB ---
cc: CHIP CANCHOLA TODD DATE OF CONSULTATION: 01/29/2017 REASON FOR CONSULTATION Right femoral neck fracture. CONSULTING PHYSICIAN Dr. Canchola HISTORY OF PRESENT ILLNESS Sarthak is a 76-year-old male who has multiple medical problems including rheumatoid arthritis, cerebral palsy leukemia, myelodysplastic syndrome, pancytopenia, osteoporosis and an inguinal hernia. He states that he had a fall in the bathroom. He does not ambulate. He had immediate right hip pain. Pain is worse with movement. He has minimal pain at rest. He presented to the emergency room where x-rays and CT scan revealed a mildly displaced right femoral neck fracture. He is currently awake and alert on the seventh floor. His only complaint is right hip. PAST MEDICAL HISTORY ILLNESSES 1. Hypertension. 2. Rheumatoid arthritis. 3. Cerebral palsy. 4. T-cell leukemia. 5. Myelodysplastic syndrome. 6. Pancytopenia. 7. Asthma. SURGERIES 1. Multiple right lower extremity surgeries for congenital deformity. 2. Cataract surgery. ALLERGIES PENICILLIN. SOCIAL HISTORY The patient denies tobacco or drug use. He drinks alcohol occasionally. He is retired. FAMILY HISTORY Positive for cancer in his father. REVIEW OF SYSTEMS The patient denies headache, visual changes, neck pain, chest pain, shortness of breath, abdominal pain, nausea, vomiting, or recent weight loss. He has chronic contractures of his right leg and right arm. He has right hip pain with movement. PHYSICAL EXAMINATION GENERAL: The patient is a thin 76-year-old male who is awake and alert. He is alert and oriented x3. VITAL SIGNS: Temperature 97.0, pulse 84, respirations 18, blood pressure 106/69, O2 sat 96% on room air. HEAD: The patient is normocephalic. Pupils are equal. NECK: Soft, nontender. Trachea is midline. ABDOMEN: Soft, nontender, nondistended. EXTREMITIES: Examination of left arm reveals no pain with shoulder, elbow or wrist motion. He has intact sensation in all fingers. Radial pulse is palpable. Sensation is intact in all fingers. Examination of right arm reveals contractures of his shoulder, elbow, wrist and fingers. He has minimal motor function of his fingers. Examination of left leg reveals no significant pain with hip, knee or ankle motion. Skin is intact. Dorsalis pedis pulse is palpable. Examination of right leg reveals contractures of his knee. He has pain with any hip motion. Skin is intact. Dorsalis pedis pulse is palpable. X-RAYS X-rays and CT scan of the right hip were reviewed. X-rays reveal a mildly angulated right femoral neck fracture. IMPRESSION 1. Anemia. 2. Osteoporosis. 3. T-cell leukemia. 4. Right femoral neck fracture. PLAN The treatment options were discussed with the patient. At this point the patient does not really ambulate. He does transfer. At this point I would recommend right hip reduction and pinning. The risks of surgery include bleeding, infection, injuries to arteries, nerves and blood vessels, nonunion, malunion, avascular necrosis, as well as medical complications including blood clot, stroke, heart attack and . At this point the patient would not be a good candidate for a hip replacement or hemiarthroplasty. If the patient develops a nonunion or avascular process he will likely benefit from a Girdlestone resection arthroplasty. The patient is in agreement with this plan. All questions were answered. A mid-level provider in my office, nurse practitioner or PA, may see this patient on a follow-up basis and continue to implement the objective of this plan including: Starting or adjusting medications, injections of muscle, tendon, bursa or joints, cast application, orthotic or brace application, physical therapy, further radiographic studies including x-ray, MRI, CT, ultrasounds or bone scan, vascular studies, neurologic studies, or other specialist consultations, and proceeding with surgical management as appropriate. MD MINERVA Aguilar/YINA /8:23 AM /12:26 PM
[2017-01-30] MEDS ORDERED: *morphine SULFATE 8 MG/ML PERIprocedure ONLY ONE (13:07)
[2017-01-30] MEDS: ACETAMINOPHEN/HYDROcodone 325 MG/5 MG TAB PO PRN ×3 (14:19→23:56)
--- NOTE | 2017-01-30 14:47 | HHI.PR ---
Subjective Remarks tolerated surgery well no pain complains Objective Vitals Vital Signs Date Time Temp Pulse Resp B/P Pulse Ox O2 Delivery O2 Flow Rate FiO2 01/30/17 13:30 98.0 96 16 112/55 100 Nasal Cannula 2 01/30/17 13:15 96 16 121/56 100 Nasal Cannula 2 01/30/17 13:00 96 16 122/58 100 Nasal Cannula 2 01/30/17 12:45 103 17 116/57 100 Nasal Cannula 2 01/30/17 12:30 101 17 120/55 100 Nasal Cannula 3 01/30/17 12:19 97.3 109 17 112/54 100 Nasal Cannula 3 01/30/17 07:45 97.0 84 18 106/69 96 01/30/17 06:00 97.1 95 16 125/61 98 01/30/17 03:49 96.2 92 16 115/59 98 01/30/17 03:23 96.7 89 18 120/57 99 01/30/17 02:58 96.7 86 16 164/70 99 01/30/17 00:56 96.9 92 16 130/60 99 01/30/17 00:37 96.8 94 16 116/58 100 01/29/17 20:11 96.5 101 16 112/55 100 01/29/17 20:00 101 01/29/17 15:00 96.6 95 20 128/66 100 I/O 01/29/17 01/29/17 01/29/17 01/30/17 01/30/17 01/30/17 07:00 15:00 23:00 07:00 15:00 23:00 Intake Total 360 ml 252 ml 650 ml Output Total 225 ml 300 ml 775 ml 525 ml Balance -225 ml 60 ml 252 ml -775 ml 125 ml Intake Oral 360 ml IV Total 252 ml 100 ml Other 550 ml Output Urine Total 225 ml 300 ml 775 ml 500 ml Estimated Blood Loss 25 ml # Voids 2 # Bowel Movements 1 0 Result Diagram: 01/30/17 0730 01/29/17 0654 Imaging Last Impressions Head CT 01/28/171843 Signed Impressions: Service Date/Time: Saturday, January 28, 2017 19:08 - CONCLUSION: No acute disease. Artemio Cline Jr., MD Pelvis X-Ray 01/28/17 183 Signed Impressions: Service Date/Time: Saturday, January 28, 2017 18:49 - CONCLUSION: Limited study due to the obliquity. Suspected acute subcapital femoral neck fracture on the right. Artemio Cline Jr., MD Femur X-Ray 01/28/17 1838 Signed Impressions: Service Date/Time: Saturday, January 28, 2017 18:50 - CONCLUSION: Suspected acute subcapital femoral neck fracture on the right. Artemio Cline Jr., MD Lower Extremity CT 01/28/17 0000 Signed Impressions: Service Date/Time: Saturday, January 28, 2017 21:17 - CONCLUSION: Acute subcapital femoral neck fracture as detailed above. 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 Would also consult general surgery to see whether patient could have inguinal hernia repair this time since it is quite large, really compromising his quality of life, and since he would be Obtain patient's med reconciliation. DVT prophylaxisSCDs. Due to thrombocytopenia Dago Canchola MD Jan 30, 2017 14:47 Dago Canchola MD Jan 30, 2017 14:47
--- NOTE | 2017-01-30 19:50 | RADRPT ---
EXAM DATE/TIME: 01/30/2017 11:55 [facility] COMPARISON: No previous studies available for comparison. INDICATIONS : Screw placement right hip MEDICAL HISTORY : Right sided injury, bone deformities.subcapital femoral neck fracture SURGICAL HISTORY : None. ENCOUNTER: Subsequent ACUITY: 2 days PAIN SCORE: Non-responsive. LOCATION: Right Hip. FINDINGS: 2 magnified C-arm spot views show 3 threaded orthopedic screws involve the femoral neck. The screws a re contained within the cortical confines of the femoral head. Good alignment. CONCLUSION: Limited images as detailed above. Artemio Cline Jr., MD on January 30, 2017 at 19:48 Board Certified Radiologist. This report was verified electronically.
[2017-01-30] MEDS: ENOXAPARIN SODIUM 30 MG/0.3 ML SYRINGE SQ SCH (23:52)
[2017-01-31] VITALS: BP 98/58; PULSE 100; RESP 16; TEMP 97.5; O2SAT 100
[2017-01-31 04:00] VITALS: BP 97/60; PULSE 98; RESP 16; TEMP 97.5; O2SAT 99
[2017-01-31] MEDS: CIPROFLOXACIN 400 MG PREMIX 200 ML IV SCH ×2 (05:10→17:01)
[2017-01-31 06:03] LABS: HEMATOCRIT 31.5 % (39.0-51.0); REVIEW FLAG FINAL
--- NOTE | 2017-01-31 06:58 | PD.ORT.PN ---
Subjective Subjective Remarks pt sleeping comfortably in bed Objective Vitals Vital Signs Date Time Temp Pulse Resp B/P Pulse Ox O2 Delivery O2 Flow Rate FiO2 01/31/17 04:00 97.5 98 16 97/60 99 01/31/17 00:00 97.5 100 16 98/58 100 01/30/17 20:00 96.8 107 16 117/60 100 01/30/17 16:00 96.4 108 18 106/56 98 01/30/17 14:00 96.6 106 18 102/66 100 01/30/17 13:50 100 Nasal Cannula 2.00 01/30/17 13:30 98.0 96 16 112/55 100 Nasal Cannula 2 01/30/17 13:15 96 16 121/56 100 Nasal Cannula 2 01/30/17 13:00 96 16 122/58 100 Nasal Cannula 2 01/30/17 12:45 103 17 116/57 100 Nasal Cannula 2 01/30/17 12:30 101 17 120/55 100 Nasal Cannula 3 01/30/17 12:19 97.3 109 17 112/54 100 Nasal Cannula 3 01/30/17 07:45 97.0 84 18 106/69 96 I/O 01/30/17 01/30/17 01/30/17 01/31/17 01/31/17 01/31/17 07:00 15:00 23:00 07:00 15:00 23:00 Intake Total 650 ml 240 ml 120 ml Output Total 775 ml 525 ml 175 ml 175 ml Balance -775 ml 125 ml 65 ml -55 ml Intake Oral 240 ml 120 ml IV Total 100 ml Other 550 ml Output Urine Total 775 ml 500 ml 175 ml 175 ml Estimated Blood Loss 25 ml # Bowel Movements 0 0 0 Result Diagram: 01/31/17 0531 01/29/17 0654 Imaging Last [address] 01/28/17 1844 Signed Impressions: Service Date/Time: Saturday, January 28, 2017 19:08 - CONCLUSION: No acute disease. Artemio Cline Jr., MD Pelvis X-Ray 01/28/171837 Signed Impressions: Service Date/Time: Saturday, January 28, 2017 18:49 - CONCLUSION: Limited study due to the obliquity. Suspected acute subcapital femoral neck fracture on the right. Artemio Cline Jr., MD Femur X-Ray 01/28/17 1838 Signed Impressions: Service Date/Time: Saturday, January 28, 2017 18:50 - CONCLUSION: Suspected acute subcapital femoral neck fracture on the right. Artemio Cline Jr., MD Objective Remarks seen by Dr. Ronald Mast sleeping comfortably in bed RLE- dressings dry and intact no calf tenderness Assessment & Plan Assessment and Plan POD # 1 s/p R ORIF PT-TTWB RLE Lovenox DVT prop anticipate discharge to SNF tomorrow Alicia Ha Jan 31, 2017 06:58
[2017-01-31 08:00] VITALS: BP 117/62; PULSE 100; RESP 17; TEMP 95.8; O2SAT 100
[2017-01-31] MEDS: SODIUM CHLORIDE 0.9% FLUSH 10 ML FLUSH IV FLUSH SCH ×3 (08:34→20:49)
[2017-01-31] MEDS: CHOLECALCIFEROL (VIT D3) 5000 UNIT CAP PO SCH (08:34)
--- NOTE | 2017-01-31 10:07 | HHI.PR ---
Subjective Remarks up on the bedside chair no complains ofl pain, no nausea or vomiting voiding spontaneously Objective Vitals Vital Signs Date Time Temp Pulse Resp B/P Pulse Ox O2 Delivery O2 Flow Rate FiO2 01/31/17 08:00 95.8 100 17 117/62 100 01/31/17 04:00 97.5 98 16 97/60 99 01/31/17 00:00 97.5 100 16 98/58 100 01/30/17 20:00 96.8 107 16 117/60 100 01/30/17 16:00 96.4 108 18 106/56 98 01/30/17 14:00 96.6 106 18 102/66 100 01/30/17 13:50 100 Nasal Cannula 2.00 01/30/17 13:30 98.0 96 16 112/55 100 Nasal Cannula 2 01/30/17 13:15 96 16 121/56 100 Nasal Cannula 2 01/30/17 13:00 96 16 122/58 100 Nasal Cannula 2 01/30/17 12:45 103 17 116/57 100 Nasal Cannula 2 01/30/17 12:30 101 17 120/55 100 Nasal Cannula 3 01/30/17 12:19 97.3 109 17 112/54 100 Nasal Cannula 3 I/O 01/30/17 01/30/17 01/30/17 01/31/17 01/31/17 01/31/17 07:00 15:00 23:00 07:00 15:00 23:00 Intake Total 650 ml 240 ml 120 ml Output Total 775 ml 525 ml 175 ml 175 ml Balance -775 ml 125 ml 65 ml -55 ml Intake Oral 240 ml 120 ml IV Total 100 ml Other 550 ml Output Urine Total 775 ml 500 ml 175 ml 175 ml Estimated Blood Loss 25 ml # Bowel Movements 0 0 0 Result Diagram: 01/31/17 0531 01/29/17 0654 Imaging Last Impressions Hip X-Ray 01/30/17 0000 Signed Impressions: Service Date/Time: Monday, January 30, 2017 11:55 - CONCLUSION: Limited images as detailed above. Artemio Cline Jr., MD Head CT 01/28/17 1844 Signed Impressions: Service Date/Time: Saturday, January 28, 2017 19:08 - CONCLUSION: No acute disease. Artemio Cline Jr., MD Pelvis X-Ray 01/28/17 1838 Signed Impressions: Service Date/Time: Saturday, January 28, 2017 18:49 - CONCLUSION: Limited study due to the obliquity. Suspected acute subcapital femoral neck fracture on the right. Artemio Cline Jr., MD Femur X-Ray 01/28/17 1838 Signed Impressions: Service Date/Time: Saturday, January 28, 2017 18:50 - CONCLUSION: Suspected acute subcapital femoral neck fracture on the right. Artemio Cline Jr., MD Lower Extremity CT 01/28/17 0000 Signed Impressions: Service Date/Time: Saturday, January 28, 2017 21:17 - CONCLUSION: Acute subcapital femoral neck fracture as detailed above. 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 DVT prophylaxisSCDs. Due to thrombocytopenia Dago Canchola MD Jan 31, 2017 10:07
[2017-01-31 12:00] VITALS: BP 131/61; PULSE 109; RESP 17; TEMP 96; O2SAT 100
--- NOTE | 2017-01-31 13:29 | MB ---
cc: ADAN SHULTZ M.D. DATE OF CONSULTATION 01/30/17 REASON FOR CONSULTATION Consult requested by hospitalist for followup of LGL leukemia. HISTORY OF PRESENT ILLNESS Sarthak is a 76-year-old male who is who is known to me for LGL leukemia. He also has rheumatoid arthritis and has been treated with the methotrexate which in fact works for both the LGL leukemia and rheumatoid arthritis. He is under the care of sec accountant, Dr. Sebastian. I have discharged him from my clinic since his blood count had improved with the methotrexate. The patient fell in the bathroom and he was unable to walk. He was complaining of right hip pain. He was brought into the emergency room. He had an x-ray and CAT scan which showed right hip fracture. The patient is now admitted to the hospital. Orthopedic has been consulted. They are planning to do surgery today. I have been asked to see the patient for LGL leukemia. REVIEW OF SYSTEMS The patient has been complaining of pain in his right hip. He denies any other complaint at the present time. The rest of the review of systems is negative. 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 PAST SURGICAL HISTORY Cataract, multiple lower extremity surgeries for congenital deformity. ALLERGIES None. MEDICATIONS Please see EMR. FAMILY HISTORY Mother from Alzheimer's disease. Father but the cause of is unknown to him. The patient does not have any siblings or sons. He has one daughter who is alive and well. SOCIAL HISTORY The patient is single. He used to smoke cigarettes, two packs a day for 30 years, quit about several years ago. He also drinks alcohol, two drinks every day. 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 PHYSICAL EXAMINATION GENERAL: This is a well-developed, well-nourished white male in no apparent distress. VITAL SIGNS: His vital signs temperature 97, heart rate is 84, blood pressure 106/69, O2 suture 96%. HEENT: PERRLA, EOMI, anicteric. No oral lesions are noted. NECK: No lymphadenopathy noted. LUNGS: Lungs are clear. No wheezing, rhonchi or rales. HEART: Heart is regular rate and rhythm. ABDOMEN: Soft, nontender. No hepatosplenomegaly. EXTREMITIES: Congenital deformity of the right lower extremity noted. NEUROLOGY: Awake, alert, oriented x3. SKIN: No significant lesions are noted. ASSESSMENT 1. History of LGL leukemia, on methotrexate. 2. Rheumatoid arthritis, on methotrexate. 3. Status post falls, sustained right hip fracture. Will undergo surgery today. PLAN I have reviewed his available records and I have discussed with the patient regarding his admission. He had a fall and was unable to get up. The x-rays and CAT scan showed that he has right hip fracture which needs to be repaired. Orthopedics has been consulted and they are going to fix this today. From hematological standpoint his CBC yesterday showed white count 3, hemoglobin 7.5, hematocrit 24, platelets 61. The patient had received blood transfusion last night and then this morning CBC showed that the hemoglobin has improved from 7.5 tot 11.3. The white count remains low at 3.2 but the platelet count has improved to 89. The patient is cleared for surgery from hematological standpoint. He does not require any specific treatment for the LGL leukemia at this time. My recommendation is to monitor his CBC and provide transfusion support as needed. Further recommendations based on his hospital stay. Thank you for asking my opinion. Rocco Shultz MD /EO /7:17 AM /1:07 PM
[2017-01-31 16:00] VITALS: BP 111/64; PULSE 114; RESP 17; TEMP 95.3; O2SAT 97
[2017-01-31 20:30] VITALS: BP 115/62; PULSE 122; RESP 19; TEMP 96.9; O2SAT 98
[2017-01-31] MEDS: DOCUSATE SODIUM 100 MG CAP PO SCH (20:49)
[2017-02-01 00:15] VITALS: BP 121/62; PULSE 112; RESP 18; TEMP 96.8; O2SAT 98
[2017-02-01] MEDS: VANCOMYCIN 1,000 MG/NS 250 ML IV SCH ×4 (01:07→11:04)
[2017-02-01] MEDS: ENOXAPARIN SODIUM 30 MG/0.3 ML SYRINGE SQ SCH (01:07)
[2017-02-01 04:50] VITALS: BP 103/58; PULSE 104; RESP 17; TEMP 97.3; O2SAT 97
[2017-02-01] MEDS: CIPROFLOXACIN 400 MG PREMIX 200 ML IV SCH (06:27)
[2017-02-01 08:00] VITALS: BP 99/62; PULSE 106; RESP 16; TEMP 96.3; O2SAT 97
--- NOTE | 2017-02-01 08:06 | PD.ORT.PN ---
Subjective Subjective Remarks pt has no complaints today resting comfortably in bed Objective Vitals Vital Signs Date Time Temp Pulse Resp B/P Pulse Ox O2 Delivery O2 Flow Rate FiO2 02/01/17 04:50 97.3 104 17 103/58 97 02/01/17 00:15 96.8 112 18 121/62 98 01/31/17 20:30 96.9 122 19 115/62 98 01/31/17 20:00 Nasal Cannula 2.00 01/31/17 16:00 95.3 114 17 111/64 97 01/31/17 12:00 96.0 109 17 131/61 100 01/31/17 08:30 Nasal Cannula 2.00 I/O 01/31/17 01/31/17 01/31/17 02/01/17 02/01/17 02/01/17 07:00 15:00 23:00 07:00 15:00 23:00 Intake Total 120 ml 720 ml 120 ml 120 ml Output Total 175 ml 200 ml 100 ml Balance -55 ml 720 ml -80 ml 20 ml Intake Oral 120 ml 720 ml 120 ml 120 ml Output Urine Total 175 ml 200 ml 100 ml Bladder Scan Volume Amount 480 ml # Voids 3 # Bowel Movements 0 0 0 0 Result Diagram: 01/31/17 0531 01/29/17 0654 Imaging Last [address] 01/28/171843 Signed Impressions: Service Date/Time: Saturday, January 28, 2017 19:08 - CONCLUSION: No acute disease. Artemio Cline Jr., MD Pelvis X-Ray 01/28/171837 Signed Impressions: Service Date/Time: Saturday, January 28, 2017 18:49 - CONCLUSION: Limited study due to the obliquity. Suspected acute subcapital femoral neck fracture on the right. Artemio Cline Jr., MD Femur X-Ray 01/28/171837 Signed Impressions: Service Date/Time: Saturday, January 28, 2017 18:50 - CONCLUSION: Suspected acute subcapital femoral neck fracture on the right. Artemio Cline Jr., MD Objective Remarks seen by Dr. Ronald Mast RLE- dressings dry and intact no calf tenderness Assessment & Plan Assessment and Plan POD # 2 s/p R ORIF PT-TTWB RLE Lovenox DVT prop discharge to SNF today, orthopedically stable Alicia Ha Feb 01, 2017 08:05
--- NOTE | 2017-02-01 09:10 | HHI.PR ---
Subjective Remarks patient no complains of post op site pain no nausea or vomiting straight cath early am- Objective Vitals Vital Signs Date Time Temp Pulse Resp B/P Pulse Ox O2 Delivery O2 Flow Rate FiO2 02/01/17 08:00 96.3 106 16 99/62 97 02/01/17 04:50 97.3 104 17 103/58 97 02/01/17 00:15 96.8 112 18 121/62 98 01/31/17 20:30 96.9 122 19 115/62 98 01/31/17 20:00 Nasal Cannula 2.00 01/31/17 16:00 95.3 114 17 111/64 97 01/31/17 12:00 96.0 109 17 131/61 100 I/O 01/31/17 01/31/17 01/31/17 02/01/17 02/01/17 02/01/17 06:59 14:59 22:59 06:59 14:59 22:59 Intake Total 120 ml 720 ml 120 ml 120 ml Output Total 175 ml 200 ml 100 ml 300 ml Balance -55 ml 720 ml -80 ml 20 ml -300 ml Intake Oral 120 ml 720 ml 120 ml 120 ml Output Urine Total 175 ml 200 ml 100 ml 300 ml Bladder Scan Volume Amount 480 ml # Voids 3 # Bowel Movements 0 0 0 0 Result Diagram: 01/31/17 0531 01/29/17 0654 Objective Remarks awake and alert, NAD, oriented x 3 anicteric lungs no rales regular rhythm abdomen soft, nontender + scrotal hernia extremities- no mass muscle mass, no calf swelling or tenderness neuro exam- non focal Procedures 01/30- right femoral neck surgery A/P Assessment and Plan 76 years old male Status post fall Acute femoral neck fracture of the right S/P ORIF 01/30 -ortho ff - PT ff- TTWB right LE Pyuria- culture no growth. On ciprofloxacin. - got 3 days course . DC today Right inguinal hernia - OP ff up- with GS - no signs of obstruction, History of MDSLarge T-cell leukemia Anemia- S/ P blood transfusion Thrombocytopenia- platelet improved -ff by Oncology. 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 Give x 1 Miralax.. Dulocolax supp x 1 - consider Flomax CM- DC planning- SNF if bed available- [facility] per CM Dago Canchola MD Feb 01, 2017 09:10
[2017-02-01] MEDS ORDERED: POLYETHYLENE GLYCOL 17 GM PKG PO ONE (09:15)
[2017-02-01] MEDS ORDERED: BISACODYL 10 MG SUPP RECTAL ONE (09:15)
[2017-02-01] MEDS ORDERED: DOCU1CAP39 PO (10:18)
[2017-02-01] MEDS ORDERED: CHOL5000 PO (10:18)
--- NOTE | 2017-02-01 10:24 | HHI.DS ---
Discharge Summary Admission Date January 28, 2017 at 20:39 Discharge Date: Feb 01, 2017 Admitting Diagnosis right subcapital femoral neck fracture (1) Femoral neck fracture ICD Code: S72.009A Diagnosis: Principal Procedures 01/30- right femoral neck surgery Brief History - From Admission sun night going on wheel chair to bathroom tripped on my own feet did not hit head did not pass out layed there till [facility] sme[facility] else and found him refused hosital transort then then ambulance came again last night beaccuse someone called he hasnt eaten in past 2 days prior to that, was able to transfer to [facility] onc eor twic e injury wheel chair bound fine till later in life felt dizziness all my life oherwise no symptomse CBC/BMP: 01/31/17 0531 01/29/17 0654 Significant Findings Laboratory Tests Test 01/30/17 01/30/17 01/31/17 07:30 19:40 05:31 White Blood Count 3.2 TH/MM3 (4.0-11.0) Red Blood Count 3.66 MIL/MM3 (4.50-5.90) Hemoglobin 11.3 GM/DL 10.7 GM/DL (13.0-17.0) (13.0-17.0) Hematocrit 32.8 % 31.5 % (39.0-51.0) (39.0-51.0) Red Cell Distribution Width 18.5 % (11.6-17.2) Platelet Count 89 TH/MM3 (150-450) Neutrophils (%) (Auto) 71.8 % (16.0-70.0) Monocytes (%) (Auto) 14.9 % (0.0-8.0) Lymphocytes # (Auto) 0.4 TH/MM3 (1.0-4.8) Platelet Estimate LOW (NORMAL) 25-Hydroxy Vitamin D Total 5.6 ng/ML (30-100) Imaging Last Impressions Hip X-Ray 01/30/17 0000 Signed Impressions: Service Date/Time: Monday, January 30, 2017 11:55 - CONCLUSION: Limited images as detailed above. Artemio Cline Jr., MD Head CT 01/28/17 1844 Signed Impressions: Service Date/Time: Saturday, January 28, 2017 19:08 - CONCLUSION: No acute disease. Artemio Cline Jr., MD Pelvis X-Ray 01/28/178 Signed Impressions: Service Date/Time: Saturday, January 28, 2017 18:49 - CONCLUSION: Limited study due to the obliquity. Suspected acute subcapital femoral neck fracture on the right. Artemio Cline Jr., MD Femur X-Ray 01/28/178 Signed Impressions: Service Date/Time: Saturday, January 28, 2017 18:50 - CONCLUSION: Suspected acute subcapital femoral neck fracture on the right. Artemio lCine Jr., MD Lower Extremity CT 01/28/17 0000 Signed Impressions: Service Date/Time: Saturday, January 28, 2017 21:17 - CONCLUSION: Acute subcapital femoral neck fracture as detailed above. Artemio Cline Jr., MD PE at Discharge awake and alert, NAD, oriented x 3 anicteric lungs no rales regular rhythm abdomen soft, nontender + scrotal hernia extremities- no mass muscle mass, no calf swelling or tenderness neuro exam- non focal Pt update on day of discharge awake and alert, pain controlled no abdominal pain, nausea or vomting, no shortness of breath Hospital Course 76 years old male Status post fall Acute femoral neck fracture of the right S/P ORIF / -ortho ff - PT ff- TTWB right LE Pyuria- culture no growth. On ciprofloxacin. - got 3 days course . DC today Right inguinal hernia - OP ff up- with GS - no signs of obstruction, History of MDSLarge T-cell leukemia Anemia- S/ P blood transfusion Thrombocytopenia- platelet improved -ff by Oncology. 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 Give x 1 Miralax.. Dulocolax supp x 1 - consider Flomax CM- DC planning- SNF if bed available- [facility] per CM Pt Condition on Discharge: Stable Discharge Disposition: Rehab Inpatient Discharge Time: <= 30 minutes Discharge Instructions DIET: Follow Instructions for: As Tolerated, No Restrictions, Heart Healthy Diet Speech Therapy-Diet Recommends: Regular Activities you can perform: Toe Touch Weight Bearing Activities to Avoid: Prolonged Standing, Strenuous Activity Follow up Referrals: Orthopedics - 2 Weeks @ [facility] with Sang Del Rio MD New Medications: Hydrocodone-Acetaminophen ([place]) 5-325 mg Tab 1 TAB PO Q4H PRN PAIN #60 Ref 0 TAB Rivaroxaban (Xarelto) 10 Mg Tab 10 MG PO DAILY Blood Clot Prevention #14 Ref 0 TAB Cholecalciferol (Vitamin D3) 5,000 Unit Cap 5000 UNITS PO DAILY supp Days 30 CAP Docusate Sodium (Dok) 100 Mg Cap 100 MG PO BID cosntip Days 10 CAP Dago Canchola MD Feb 01, 2017 10:24
[2017-02-01] MEDS: DOCUSATE SODIUM 100 MG CAP PO SCH (11:03)
[2017-02-01] MEDS: CHOLECALCIFEROL (VIT D3) 5000 UNIT CAP PO SCH (11:03)
[2017-02-01] MEDS: SODIUM CHLORIDE 0.9% FLUSH 10 ML FLUSH IV FLUSH SCH (11:04)
[2017-02-01 11:55] VITALS: BP 123/61; PULSE 109; RESP 16; TEMP 95.9; O2SAT 98
[2017-02-16] MEDS ORDERED: FAMO20TA2 PO (08:42)
[2017-02-16] MEDS ORDERED: ACET1TAB86 PO (08:42)
[2017-02-16] MEDS ORDERED: NORC5TAB PO (08:42)
[2017-02-16] MEDS ORDERED: MIRTA15 PO (08:42)
[2017-02-16] MEDS ORDERED: CHOL5000 PO (08:42)
[2017-02-16] MEDS ORDERED: METO25TA3 PO (08:42)
[2017-02-16] MEDS ORDERED: DOCU1CAP39 PO (08:42)
[2017-02-16] MEDS ORDERED: ONDA4TAB7 PO (08:42)
== END 2017-02-01 13:23 | DRG 481 ==
LOC: NEPC 16:41 → NEDA 20:39 → HOCB 23:18 → N06B 01-30 10:19
PROVIDERS: ADMIT Internal Medicine; ATTEND Internal Medicine
PROC: 30253N1 (ICD-10-PCS; 2017-01-28)
PROC: 0QS634Z Reposition Right Upper Femur with Internal Fixation Device, Percutaneous Approach (ICD-10-PCS; principal; 2017-01-30 11:11)
DX: S72.011A Unspecified intracapsular fracture of right femur, initial encounter for closed fracture (principal); C91.00 Acute lymphoblastic leukemia not having achieved remission; D61.818 Other pancytopenia; N39.0 Urinary tract infection, site not specified; M06.9 Rheumatoid arthritis, unspecified; I10 Essential (primary) hypertension; G80.9 Cerebral palsy, unspecified; J45.909 Unspecified asthma, uncomplicated; K40.90 Unilateral inguinal hernia, without obstruction or gangrene, not specified as recurrent; W01.0XXA Fall on same level from slipping, tripping and stumbling without subsequent striking against object, initial encounter; Y92.002 Bathroom of unspecified non-institutional (private) residence as the place of occurrence of the external cause; M81.0 Age-related osteoporosis without current pathological fracture; K59.09 Other constipation; Z79.899 Other long term (current) drug therapy; Z87.891 Personal history of nicotine dependence; Z99.3 Dependence on wheelchair
CPT/HCPCS: 36430; 70450; 72170; 73502; 73552; 73700; 76000; 80048; 80053; 81001; 82306; 82550; 83605; 85014; 85018; 85025; 85610; 85730; 86850; 86900; 86901; 86920; 87086; 93005; C1713; C1769; J0131; J0744; J1580; J1650; J1940; J2270; J2370; J2405; J3010; J3370; J7030; J7050; P9016